=== PATIENT | male | born 1980 | race Caucasian/White ===

== ENCOUNTER → 2021-06-06 | Outpatient (CLI) | payer OTHER ==
[2015-09-11 10:50] VITALS: BP 157/90
--- NOTE | 2021-06-06 08:41 | KCIC ---
EXAM: Chest, single view. HISTORY: Cardiac implant. COMPARISON: None. FINDINGS: A frontal view of the chest is obtained. There is a generator with lead overlying the left upper thorax. There is no consolidation, pleural effusion or pneumothorax. The heart is normal in siz e. IMPRESSION: No acute pulmonary finding. Electronically signed by: Karlee Cassidy MD (06/06/2021 8:39 AM) [id number]
== END ==
LOC: KCIC MRI 07:56
PROVIDERS: ATTEND Psychiatry & Neurology Neurology with Special Qualifications in Child Neurology
DX: H53.2 Diplopia (principal)
CPT/HCPCS: 71045